=== PATIENT | male | born 1945 | race Caucasian/White ===

== ENCOUNTER 2023-08-05 08:38 | Observation (INO) | payer BC ==
[~2023-08-05] VITALS: Ht 162.6 cm; Wt 652.7 kg
[~2023-08-05 08:38] MED LIST: DIVA-74 PO; LEVE500S9 PO; LEVO-62 PO; MIRA25TA PO; TAMS0.4C96 PO
[2023-08-05 08:49] VITALS: BP_SYST 117; PULSE 101; RESP 19; TEMP 99.5; O2SAT 94
[2023-08-05] MEDS ORDERED: NACL 0.9% 1,000 ML IV ONE (09:00)
[2023-08-05 09:37] LABS: BASOPHILS % (AUTO) 0.2 % (0.0-2.0); EOSINOPHILS % (AUTO) 0.1 % (0.0-4.0); HEMATOCRIT 32.6 % (36-54); HEMOGLOBIN 10.1 g/dL (14.0-18.0); LYMPHOCYTES # (AUTO) 1.2 K/uL (1.0-5.5); LYMPHOCYTES % (AUTO) 8.2 % (20.5-51.5); MEAN CORPUSCULAR HEMOGLOBIN 26 pg (27-31); MEAN CORPUSCULAR HGB CONC 31 % (32-36); MEAN CORPUSCULAR VOLUME 83 fL (79.0-98.0); MONOCYTES # (AUTO) 0.8 K/uL (0.0-1.0); MONOCYTES % (AUTO) 5.7 % (1.7-9.3); NEUTROPHILS # (AUTO) 12.4 K/uL (1.8-7.7); NEUTROPHILS % (AUTO) 85.8 % (40.0-70.0); PLATELET COUNT (AUTO) 162 K/uL (130-430); RED BLOOD CELL COUNT(AUTO) 3.92 MIL/uL (4.2-6.2); RED CELL DISTRIBUTION WIDTH 16.3 % (9.0-15.0); WHITE BLOOD COUNT (AUTO) 14.5 K/uL (4.8-10.8)
[2023-08-05 09:46] LABS: BILIRUBIN,URINE NEGATIVE (NEGATIVE); CLARITY/URINE CLEAR (CLEAR); COLOR,URINE YELLOW (YELLOW); GLUCOSE,URINE NEGATIVE (NEGATIVE); KETONES,URINE NEGATIVE (NEGATIVE); LEUKOCYTE ESTERASE ,URINE NEGATIVE (NEGATIVE); NITRITE, URINE NEGATIVE (NEGATIVE); PROTEIN URINE NEGATIVE (NEGATIVE); UROBILINOGEN,URINE 0.2 (0.2-1.0)
[2023-08-05 09:50] LABS: BLOOD, URINE TRACE (NEGATIVE)
[2023-08-05 09:50] LABS: ANION GAP 9 (5-15); CALCIUM 9.6 mg/dL (8.4-11.0); CARBON DIOXIDE 26 mmol/L (23-29); CHLORIDE 103 mmol/L (98-107); CREATININE 1.43 mg/dL (0.55-1.30); GLUCOSE 108 mg/dL (74-106); SODIUM SERUM 138 mmol/L (136-145); UREA NITROGEN, BLOOD 21 mg/dL (8-21)
[2023-08-05 09:51] LABS: INR 1.2 (0.80-1.20); PROTHROMBIN TIME 12.1 SECS (9.5-12.5)
[2023-08-05 09:57] LABS: ALANINE AMINOTRANSFERASE 10 U/L (12-78); ALBUMIN 2.6 g/dL (3.4-4.8); ASPARTATE AMINOTRANSFERASE 20 U/L (10-37); TOTAL BILIRUBIN 0.5 mg/dL (0.0-1.0); TOTAL PROTEIN, SERUM 8.2 g/dL (6.4-8.3)
[2023-08-05 10:05] LABS: BACTERIA,URINE None Seen /HPF (None Seen); WBC,URINE NONE SEEN /HPF (0-3)
[2023-08-05 10:57] LABS: INFLUENZA TYPE A Negative (NEGATIVE)
[2023-08-05 11:07] LABS: INFLUENZA TYPE B POSITIVE (NEGATIVE)
[2023-08-05] MEDS ORDERED: OSELTAMIVIR PHOSPHATE 75 MG CAPSULE PO ONE (11:15)
[2023-08-05] MEDS ORDERED: FINA5TAB11 PO (11:35)
[2023-08-05] MEDS ORDERED: ROSU5TAB13 PO (11:35)
[2023-08-05] MEDS ORDERED: ONDANSETRON HCL 4 MG/2 ML VIAL IVP PRN (12:00)
[2023-08-05] MEDS ORDERED: ACETAMINOPHEN 325 MG TABLET PO PRN ×2 (12:00→12:45)
[2023-08-05] MEDS ORDERED: HYDROcodone/ACETAMIN 5-325 MG TAB (NORCO/ VICODIN) PO PRN ×2 (12:00)
[2023-08-05] MEDS: NACL 0.9% 1,000 ML IV SCH ×2 (12:51→22:00)
[2023-08-05 15:36] VITALS: BP_SYST 106; PULSE 87; RESP 18; TEMP 99.9
[2023-08-05 15:55] VITALS: O2SAT 97
[2023-08-05] MEDS: ALBUTEROL SULFATE 0.083% 2.5 MG/3 ML VIAL.NEB INH SCH ×2 (16:02→19:00)
[2023-08-05 16:26] VITALS: BP_SYST 106; PULSE 82; O2SAT 97
[2023-08-05] MEDS ORDERED: ATORVASTATIN 20 MG TABLET PO ONE (17:45)
[2023-08-05] MEDS ORDERED: TAMSULOSIN HCL 0.4 MG CAP PO ONE (17:45)
[2023-08-05 20:00] VITALS: BP_SYST 127; PULSE 88; RESP 16; TEMP 99.7; O2SAT 95
[2023-08-05] MEDS: OSELTAMIVIR PHOSPHATE 6 MG/1 ML, 60 ML SUSP PO SCH (21:00)
[2023-08-05] MEDS: levETIRAcetam 500 MG TABLET PO SCH (21:44)
[2023-08-05] MEDS: DIVALPROEX SODIUM 500 MG TABLET( DEPAKOTE) PO SCH (21:44)
[2023-08-05 22:30] VITALS: O2SAT 95
[2023-08-06] VITALS (8 sets, daily range): BP systolic 105–121; PULSE 66–144; RESP 16–20; TEMP 97.8–102; O2SAT 93–97
[2023-08-06] MEDS: NACL 0.9% 1,000 ML IV SCH (02:55)
[2023-08-06 05:00] LABS: BASOPHILS % (AUTO) 0.1 % (0.0-2.0); EOSINOPHILS % (AUTO) 0.1 % (0.0-4.0); HEMATOCRIT 30.1 % (36-54); HEMOGLOBIN 9.3 g/dL (14.0-18.0); LYMPHOCYTES # (AUTO) 2.5 K/uL (1.0-5.5); LYMPHOCYTES % (AUTO) 17.7 % (20.5-51.5); MEAN CORPUSCULAR HEMOGLOBIN 26 pg (27-31); MEAN CORPUSCULAR HGB CONC 31 % (32-36); MEAN CORPUSCULAR VOLUME 84 fL (79.0-98.0); MONOCYTES % (AUTO) 7.3 % (1.7-9.3); NEUTROPHILS # (AUTO) 10.6 K/uL (1.8-7.7); NEUTROPHILS % (AUTO) 74.8 % (40.0-70.0); PLATELET COUNT (AUTO) 129 K/uL (130-430); RED CELL DISTRIBUTION WIDTH 16.3 % (9.0-15.0); WHITE BLOOD COUNT (AUTO) 14.2 K/uL (4.8-10.8)
[2023-08-06 05:31] LABS: ALANINE AMINOTRANSFERASE 8 U/L (12-78); ANION GAP 7 (5-15); ASPARTATE AMINOTRANSFERASE 18 U/L (10-37); CALCIUM 8.8 mg/dL (8.4-11.0); CARBON DIOXIDE 28 mmol/L (23-29); CHLORIDE 106 mmol/L (98-107); GLUCOSE 101 mg/dL (74-106); POTASSIUM 4.2 mmol/L (3.5-5.1); SODIUM SERUM 141 mmol/L (136-145); TOTAL BILIRUBIN 0.5 mg/dL (0.0-1.0); TOTAL PROTEIN, SERUM 6.9 g/dL (6.4-8.3); UREA NITROGEN, BLOOD 19 mg/dL (8-21)
[2023-08-06] MEDS: ALBUTEROL SULFATE 0.083% 2.5 MG/3 ML VIAL.NEB INH SCH ×5 (07:18→23:46)
[2023-08-06] MEDS ORDERED: ATORVASTATIN 20 MG TABLET PO SCH (09:00)
[2023-08-06] MEDS: TAMSULOSIN HCL 0.4 MG CAP PO SCH (10:19)
[2023-08-06] MEDS: levETIRAcetam 500 MG TABLET PO SCH ×2 (10:19→20:28)
[2023-08-06] MEDS: levoFLOXacin 500 MG TABLET PO SCH (10:20)
[2023-08-06] MEDS: DIVALPROEX SODIUM 500 MG TABLET( DEPAKOTE) PO SCH ×2 (10:20→20:28)
[2023-08-06] MEDS: OSELTAMIVIR PHOSPHATE 6 MG/1 ML, 60 ML SUSP PO SCH ×2 (10:29→20:28)
[2023-08-07] VITALS (10 sets, daily range): BP systolic 98–115; PULSE 90–112; RESP 16; TEMP 97–98.7; O2SAT 95–97
[2023-08-07] MEDS: ALBUTEROL SULFATE 0.083% 2.5 MG/3 ML VIAL.NEB INH SCH ×5 (03:27→20:14)
[2023-08-07 06:48] LABS: BASOPHILS % (AUTO) 0.2 % (0.0-2.0); EOSINOPHILS % (AUTO) 0.2 % (0.0-4.0); HEMATOCRIT 27.9 % (36-54); HEMOGLOBIN 8.8 g/dL (14.0-18.0); LYMPHOCYTES # (AUTO) 1.1 K/uL (1.0-5.5); LYMPHOCYTES % (AUTO) 9.8 % (20.5-51.5); MEAN CORPUSCULAR HEMOGLOBIN 26 pg (27-31); MEAN CORPUSCULAR HGB CONC 32 % (32-36); MEAN CORPUSCULAR VOLUME 83 fL (79.0-98.0); MONOCYTES # (AUTO) 0.6 K/uL (0.0-1.0); MONOCYTES % (AUTO) 5.6 % (1.7-9.3); NEUTROPHILS # (AUTO) 9.7 K/uL (1.8-7.7); NEUTROPHILS % (AUTO) 84.2 % (40.0-70.0); PLATELET COUNT (AUTO) 123 K/uL (130-430); RED BLOOD CELL COUNT(AUTO) 3.38 MIL/uL (4.2-6.2); RED CELL DISTRIBUTION WIDTH 16.2 % (9.0-15.0); WHITE BLOOD COUNT (AUTO) 11.5 K/uL (4.8-10.8)
[2023-08-07 07:04] LABS: ANION GAP 8 (5-15); CALCIUM 8.8 mg/dL (8.4-11.0); CARBON DIOXIDE 26 mmol/L (23-29); CHLORIDE 104 mmol/L (98-107); CREATININE 1.48 mg/dL (0.55-1.30); GLUCOSE 104 mg/dL (74-106); POTASSIUM 3.5 mmol/L (3.5-5.1); SODIUM SERUM 138 mmol/L (136-145); UREA NITROGEN, BLOOD 24 mg/dL (8-21)
[2023-08-07] MEDS: levoFLOXacin 500 MG TABLET PO SCH (10:02)
[2023-08-07] MEDS: TAMSULOSIN HCL 0.4 MG CAP PO SCH (10:03)
[2023-08-07] MEDS: levETIRAcetam 500 MG TABLET PO SCH ×2 (10:05→20:07)
[2023-08-07] MEDS: DIVALPROEX SODIUM 500 MG TABLET( DEPAKOTE) PO SCH ×2 (10:05→20:08)
[2023-08-07] MEDS: OSELTAMIVIR PHOSPHATE 6 MG/1 ML, 60 ML SUSP PO SCH ×2 (10:06→19:59)
[2023-08-07] MEDS ORDERED: OSEL6SUS4 PO (12:10)
[2023-08-07] MEDS ORDERED: LEVO-62 PO (12:10)
[2023-08-07] MEDS ORDERED: MENTHOL/ZINC OXIDE 113 GM OINT. TP PRN (12:15)
== END 2023-08-07 20:24 | disposition home or self-care (01) ==
LOC: SED 08:38 → SMU 12:02
PROVIDERS: ADMIT Family Medicine; ATTEND Family Medicine
DX: J10.1 Influenza due to other identified influenza virus with other respiratory manifestations (principal); Z20.822 Contact with and (suspected) exposure to COVID-19; R65.10 Systemic inflammatory response syndrome (SIRS) of non-infectious origin without acute organ dysfunction; N17.9 Acute kidney failure, unspecified; E87.20 Acidosis, unspecified; N40.0 Benign prostatic hyperplasia without lower urinary tract symptoms; E78.5 Hyperlipidemia, unspecified; G40.909 Epilepsy, unspecified, not intractable, without status epilepticus; E78.00 Pure hypercholesterolemia, unspecified; N18.9 Chronic kidney disease, unspecified; R55 Syncope and collapse; J90 Pleural effusion, not elsewhere classified; D72.829 Elevated white blood cell count, unspecified; E88.09 Other disorders of plasma-protein metabolism, not elsewhere classified; R79.89 Other specified abnormal findings of blood chemistry; H70.11 Chronic mastoiditis, right ear; Z79.899 Other long term (current) drug therapy
CPT/HCPCS: 36415; 70450-TC; 71045; 76376; 80048; 80053; 81000; 81001; 82550; 83605; 84302; 84484; 85025; 85610-TC; 85730-TC; 87040; 87086; 93005; 94640; 94760; 96360; 96361; 97110-GP; 97116-GP; 97530-GP; 99291; G0378; G9035